=== PATIENT | female | born 1995 | race Caucasian/White ===

== ENCOUNTER 2016-12-05 02:06 | Emergency (ER) | payer OTHER ==
[~2016-12-05] VITALS: Ht 165.1 cm; Wt 68.0 kg
[~2016-12-05 02:06] MED LIST: ALBUTEROL0.09 MG/A2 IH; AMOXICILLIN500 M2 PO; AMOXICILLIN500 MG PO; ANAPROX DS550 MG PO; ANUSOL-HC25 MG R; BACTRIM DS 8001 TA1 PO; BACTRIM DS 8001 TAB PO; BACTROBAN OINT22 GM PO; BIRTH CONTROL1 EAC1 PO; CATAFLAM50 MG PO; CEPHALEXIN500 M1 PO; CLINDAMYCIN HC300 MG PO; CYCLOBENZAPRINE10 MG PO; DIFLUCAN150 MG PO; ELIMITE 5%60 GM PO; FERROUS SULFATE27 MG PO; FLONASE0.05 MG/AC NS; HYDROCODONE BIT1 T11 PO; IBU-6600 MG PO; IBUPROFEN100 M1 PO; IBUPROFEN600 MG PO; KEFLEX500 MG PO; LIDOCAINE VISC100 ML MM; MACROBID100 M1 PO; METHYLPHENIDATE36 M3 PO; MOTRIN400 MG PO; MOTRIN800 MG PO; MYCOSTATIN100000 U/M PO; Motrin,Rufen800 MG PO; NAPROSYN500 MG PO; NKHM; NORCO 5-325 TA1 EACH PO; PENICILLIN VK500 MG PO; PENICILLIN-VK500 MG PO; PEPCID20 MG PO; PRENATAL1 TA3 PO; Peridex 473 ML473 ML PO; ROBITUSSIN CF240 ML PO; SEPTRA DS 800 M1 TAB PO; TESSALON PERLE200 MG PO; TRAMADOL HCL50 MG PO; ULTRAM50 MG PO; ZITHROMAX Z-PA250 MG PO; Zofran4 MG PO
[2016-12-05 02:07] VITALS: BP 112/59
[2016-12-05 02:39] LABS: BASO % 0.1 % (0.0-1.0); EOS # 0.1 10*3/uL (0.0-0.4); EOS % 0.4 % (1.0-4.0); HEMATOCRIT 35.1 % (37.0-47.0); HEMOGLOBIN 12.2 g/dl (12.0-16.0); IG # 0.1 10*3/uL (0.0-0.1); LYMPH # 0.8 10*3/uL (1.3-4.4); LYMPH % 5.6 % (27.0-41.0); MEAN CELL VOLUME 82.4 fl (81.0-99.0); MEAN CORPUSCULAR HGB 28.6 pg (27.0-31.0); MEAN CORPUSCULAR HGB CONC 34.8 g/dl (33.0-37.0); MEAN PLATELET VOLUME 10.7 fl (9.6-12.3); MONO # 0.9 10*3/uL (0.1-1.0); MONO % 6.4 % (3.0-9.0); NEUT # 11.7 10*3/uL (2.3-7.9); NEUT % 87.1 % (47.0-73.0); PLATELET COUNT AUTOMATED 172 10*3/uL (130-400); RED BLOOD COUNT 4.26 10*6/uL (4.10-5.10); RED CELL DISTRI WIDTH 13.2 % (0-14.5); WHITE BLOOD COUNT 13.5 10*3/uL (4.8-10.8)
[2016-12-05 02:57] LABS: ALBUMIN 3.5 gm/dl (3.1-4.5); ALKALINE PHOSPHATASE 139 U/L (45-117); BILIRUBIN, TOTAL 0.5 mg/dl (0.2-1.0); BUN 6 mg/dl (7-24); CARBON DIOXIDE 24 mmol/L (21-32); CHLORIDE 106 mmol/L (98-107); EST GLOM FILT AFRICAN AMERICAN > 60 ml/min; GLUCOSE 92 mg/dL (65-99); POTASSIUM 3.3 mmol/L (3.5-5.1); SGOT/AST 32 IU/L (3-35); SGPT/ALT 43 U/L (12-78); SODIUM 141 mmol/L (136-145); TOTAL PROTEIN 6.7 gm/dL (6.4-8.2)
[2016-12-05 03:31] LABS: BILIRUBIN NEGATIVE (NEGATIVE); BLOOD NEGATIVE (NEGATIVE); CLARITY CLEAR (CLEAR); COLOR YELLOW (YELLOW); GLUCOSE NEGATIVE (NEGATIVE); KETONE 2+ (NEGATIVE); LEUKO ESTERASE TRACE (NEGATIVE); NITRITE NEGATIVE (NEGATIVE); PH 5.5 (5.0-9.0); PROTEIN NEGATIVE (NEGATIVE); SPECIFIC GRAVITY <= 1.005 (1.005-1.030)
[2016-12-05 03:38] LABS: BACTERIA TRACE; URINE REFLEX COMMENT YES (NO)
[2016-12-05] MEDS ORDERED: Zofran4 MG PO (03:55)
== END 2016-12-05 04:00 | disposition home or self-care (01) ==
LOC: ED 02:06
PROVIDERS: Emergency Medicine
DX: B34.9 Viral infection, unspecified (principal); I88.9 Nonspecific lymphadenitis, unspecified

== ENCOUNTER 2017-01-21 15:19 | Emergency (ER) | payer OTHER ==
[~2017-01-21] VITALS: Ht 157.4 cm; Wt 72.6 kg
[2017-01-21 15:51] VITALS: BP 116/72
[2017-01-21] MEDS ORDERED: CONCERTA36 MG PO (15:51)
[2017-01-21] MEDS ORDERED: PRENATAL ONE D1 EACH PO (16:07)
== END 2017-01-21 16:08 | disposition home or self-care (01) ==
LOC: ED 15:19
DX: Z32.01 Encounter for pregnancy test, result positive (principal); F17.200 Nicotine dependence, unspecified, uncomplicated

== ENCOUNTER 2017-09-27 11:27 | Emergency (ER) | payer OTHER ==
[~2017-09-27] VITALS: Ht 157.4 cm; Wt 68.0 kg
[~2017-09-27 11:27] MED LIST changes: +CONCERTA36 MG PO; +PRENATAL ONE D1 EACH PO
[2017-09-27 11:33] VITALS: BP 113/69
[2017-09-27 12:09] LABS: BASO % 0.3 % (0.0-1.0); EOS # 0.3 10*3/uL (0.0-0.4); EOS % 2.2 % (1.0-4.0); HEMATOCRIT 34.6 % (37.0-47.0); HEMOGLOBIN 11.4 g/dl (12.0-16.0); LYMPH # 2.3 10*3/uL (1.3-4.4); LYMPH % 16.4 % (27.0-41.0); MEAN CELL VOLUME 81.6 fl (81.0-99.0); MEAN CORPUSCULAR HGB 26.9 pg (27.0-31.0); MEAN CORPUSCULAR HGB CONC 32.9 g/dl (33.0-37.0); MEAN PLATELET VOLUME 10.8 fl (9.6-12.3); MONO # 0.8 10*3/uL (0.1-1.0); MONO % 5.6 % (3.0-9.0); NEUT # 10.7 10*3/uL (2.3-7.9); NEUT % 74.9 % (47.0-73.0); PLATELET COUNT AUTOMATED 275 10*3/uL (130-400); RED BLOOD COUNT 4.24 10*6/uL (4.10-5.10); RED CELL DISTRI WIDTH 14.3 % (0-14.5); WHITE BLOOD COUNT 14.3 10*3/uL (4.8-10.8)
[2017-09-27 12:24] LABS: ALBUMIN 2.8 gm/dl (3.1-4.5); ALKALINE PHOSPHATASE 203 U/L (45-117); BUN 8 mg/dl (7-24); CHLORIDE 104 mmol/L (98-107); CREATININE 0.67 mg/dL (0.55-1.02); POTASSIUM 4.1 mmol/L (3.5-5.1); SGOT/AST 18 IU/L (3-35); SGPT/ALT 19 U/L (12-78); SODIUM 138 mmol/L (136-145); TOTAL PROTEIN 6.9 gm/dL (6.4-8.2)
[2017-09-27] MEDS ORDERED: ANUSOL HC30 GM PO (13:44)
== END 2017-09-27 11:35 | disposition left against medical advice (07) ==
LOC: ED 11:27
PROVIDERS: Physician Assistant
DX: K64.5 Perianal venous thrombosis (principal); F17.200 Nicotine dependence, unspecified, uncomplicated; Z79.899 Other long term (current) drug therapy

== ENCOUNTER 2017-11-03 23:05 | Emergency (ER) | payer OTHER ==
[~2017-11-03] VITALS: Ht 157.4 cm; Wt 68.0 kg
[~2017-11-03 23:05] MED LIST changes: +ANUSOL HC30 GM PO
[2017-11-04 00:19] VITALS: BP 110/75
[2017-11-04] MEDS ORDERED: ROBAXIN500 M1 PO (00:28)
[2017-11-04] MEDS ORDERED: ANAPROX DS550 MG PO (00:28)
== END 2017-11-04 00:54 | disposition home or self-care (01) ==
LOC: ED 23:05
DX: S16.1XXA Strain of muscle, fascia and tendon at neck level, initial encounter (principal); S30.0XXA Contusion of lower back and pelvis, initial encounter; F17.200 Nicotine dependence, unspecified, uncomplicated; W10.8XXA Fall (on) (from) other stairs and steps, initial encounter; Y93.89 Activity, other specified; Y92.89 Other specified places as the place of occurrence of the external cause; Y99.8 Other external cause status

== ENCOUNTER 2018-12-19 21:46 | Emergency (ER) | payer OTHER ==
[~2018-12-19] VITALS: Ht 157.4 cm; Wt 63.5 kg
[~2018-12-19 21:46] MED LIST changes: +PENICILLIN-VK500 M1 PO; +ROBAXIN500 M1 PO
[2018-12-19 21:49] VITALS: BP 105/58
== END 2018-12-19 22:18 | disposition home or self-care (01) ==
LOC: ED 21:46
DX: F41.9 Anxiety disorder, unspecified (principal)

== ENCOUNTER 2019-05-15 12:46 | Emergency (ER) | payer MEDICAID ==
[~2019-05-15] VITALS: Ht 157.4 cm; Wt 63.5 kg
[2019-05-15 12:50] VITALS: BP 132/80
[2019-05-15 13:24] LABS: BILIRUBIN NEGATIVE (NEGATIVE); BLOOD 3+ (NEGATIVE); CLARITY SL CLOUDY (CLEAR); COLOR YELLOW (YELLOW); GLUCOSE NEGATIVE (NEGATIVE); KETONE NEGATIVE (NEGATIVE); LEUKO ESTERASE NEGATIVE (NEGATIVE); NITRITE NEGATIVE (NEGATIVE); PH 5.5 (5.0-9.0); SPECIFIC GRAVITY 1.025 (1.005-1.030); UROBILINOGEN 0.2 E.U./dl (0.2-1.0)
[2019-05-15 13:38] LABS: MUCOUS 1+; RBC 31-40 rbc/hpf (0-2)
[2019-05-15 13:39] LABS: BACTERIA TRACE
[2019-05-15] MEDS ORDERED: PRENATAL TABLE1 EAC2 PO (14:23)
== END 2019-05-15 14:39 | disposition home or self-care (01) ==
LOC: ED 12:46
PROVIDERS: Nurse Practitioner Family
DX: N93.9 Abnormal uterine and vaginal bleeding, unspecified (principal); R10.9 Unspecified abdominal pain; Z32.02 Encounter for pregnancy test, result negative

== ENCOUNTER 2019-05-17 14:36 | Emergency (ER) | payer MEDICAID ==
[~2019-05-17] VITALS: Ht 157.4 cm; Wt 63.0 kg
[~2019-05-17 14:36] MED LIST changes: +PRENATAL TABLE1 EAC2 PO
[2019-05-17 14:39] VITALS: BP 126/77
== END 2019-05-17 15:51 | disposition home or self-care (01) ==
LOC: ED 14:36
DX: N91.2 Amenorrhea, unspecified (principal); Z79.899 Other long term (current) drug therapy

== ENCOUNTER → 2019-06-21 | Outpatient (CLI) | payer OTHER | END | disposition home or self-care (01) | LOC: LAB 12:48 | DX: Z34.80 Encounter for supervision of other normal pregnancy, unspecified trimester (principal) ==

== ENCOUNTER 2024-08-10 18:53 | Emergency (ER) | payer OTHER ==
[~2024-08-10] VITALS: Ht 157.4 cm; Wt 83.9 kg
[2024-08-10 21:45] LABS: BILIRUBIN Negative (Negative); BLOOD Negative (Negative); CLARITY Clear (Clear); COLOR Yellow (Yellow); GLUCOSE Negative (Negative); KETONE Negative (Negative); LEUKO ESTERASE Negative (Negative); NITRITE Negative (Negative); PH 5.5 (4.5-8.0); SPECIFIC GRAVITY >= 1.030 (1.001-1.030)
[2024-08-10 21:55] LABS: BACTERIA TRACE; CALCIUM OXALATE CRYSTALS Trace; MUCOUS 1+; RBC 0-2 rbc/hpf (0-2); WBC 0-2 wbc/hpf (0-5)
[2024-08-10 22:11] LABS: BASO % 0.2 % (0.0-1.0); EOS # 0.1 10*3/uL (0.0-0.4); EOS % 0.6 % (1.0-4.0); HEMATOCRIT 34.5 % (37.0-47.0); MEAN CELL VOLUME 82.5 fl (81.0-99.0); MEAN CORPUSCULAR HGB 28.7 pg (27.0-31.0); MEAN CORPUSCULAR HGB CONC 34.8 g/dl (33.0-37.0); MEAN PLATELET VOLUME 10.2 fl (9.6-12.3); MONO # 0.6 10*3/uL (0.1-1.0); MONO % 4.5 % (3.0-9.0); NEUT # 8.9 10*3/uL (2.3-7.9); NEUT % 71.3 % (47.0-73.0); PLATELET COUNT AUTOMATED 265 10*3/uL (130-400); RED BLOOD COUNT 4.18 10*6/uL (4.10-5.10); WHITE BLOOD COUNT 12.5 10*3/uL (4.8-10.8)
[2024-08-10 22:49] LABS: ALKALINE PHOSPHATASE 124 U/L (46-116); BUN 7 mg/dl (9-23); CHLORIDE 104 mmol/L (98-107); POTASSIUM 3.5 mmol/L (3.4-5.1); SGPT/ALT 16 U/L (5-49); TOTAL PROTEIN 6.9 gm/dL (6.0-8.0)
[2024-08-10 23:47] VITALS: BP 122/68
== END 2024-08-11 00:30 | disposition short-term general hospital (02) ==
LOC: ED 18:53
PROVIDERS: Nurse Practitioner
DX: O20.9 Hemorrhage in early pregnancy, unspecified (principal); O26.891 Other specified pregnancy related conditions, first trimester; R10.2 Pelvic and perineal pain; Z3A.00 Weeks of gestation of pregnancy not specified

== ENCOUNTER 2025-03-20 16:59 | Emergency (ER) | payer OTHER ==
[~2025-03-20] VITALS: Ht 157.4 cm; Wt 68.0 kg
[2025-03-20 17:47] VITALS: BP 105/57
[2025-03-20] MEDS ORDERED: AMOX-CLAV 875-1 EACH PO (17:55)
[2025-03-20] MEDS ORDERED: Amoxicillin/Clavulanate Pota 875 MG TAB PO ONE (17:55)
== END 2025-03-20 18:03 | disposition home or self-care (01) ==
LOC: ED 16:59
DX: J02.0 Streptococcal pharyngitis (principal); Z79.899 Other long term (current) drug therapy